=== PATIENT | male | born 1960 ===

== ENCOUNTER 2018-06-19 07:52 | Outpatient (CLI) | payer OTHER | END 2018-06-19 08:02 | disposition home or self-care (01) | LOC: LAB 07:52 | DX: Z11.3 Encounter for screening for infections with a predominantly sexual mode of transmission (principal); Z13.220 Encounter for screening for lipoid disorders; Z13.89 Encounter for screening for other disorder; Z12.5 Encounter for screening for malignant neoplasm of prostate; Z11.4 Encounter for screening for human immunodeficiency virus [HIV] ==

== ENCOUNTER 2018-12-09 09:30 | Outpatient (CLI) | payer OTHER | END 2018-12-09 09:37 | disposition home or self-care (01) | LOC: RAD 09:30 | DX: R09.82 Postnasal drip (principal); R05 Cough; H81.399 Other peripheral vertigo, unspecified ear ==

== ENCOUNTER 2018-12-15 08:02 | Outpatient (CLI) | payer OTHER | END 2018-12-15 08:06 | disposition home or self-care (01) | LOC: TOM 08:02 | DX: J32.8 Other chronic sinusitis (principal) ==

== ENCOUNTER 2020-06-27 07:47 | Outpatient (CLI) | payer OTHER | END 2020-06-27 08:03 | disposition HB | LOC: TOM 07:47 | DX: G93.89 Other specified disorders of brain (principal); I11.9 Hypertensive heart disease without heart failure; E78.49 Other hyperlipidemia; R42 Dizziness and giddiness ==

== ENCOUNTER 2021-10-10 08:30 | Outpatient (CLI) | payer OTHER | END 2021-10-10 08:41 | disposition home or self-care (01) | LOC: RAD 08:30 | PROVIDERS: ATTEND Podiatrist Foot Surgery | DX: M77.42 Metatarsalgia, left foot (principal) ==